=== PATIENT | female | born 1955 | race African-American/Black ===

== ENCOUNTER 2025-10-19 09:05 | Emergency (ER) | payer MEDICARE, OTHER ==
[~2025-10-19] VITALS: Ht 153 cm; Wt 85.9 kg
[~2025-10-19 09:05] MED LIST: AMOX-429 PO; HYDR25TA2 PO; LISI-894 PO
[2025-10-19] MEDS: KETOROLAC TROMETHAMINE 30 MG/ML VIAL IM ONE (12:53)
[2025-10-19] MEDS: LIDOCAINE 5% TRANSDERMAL PATCH TD ONE (12:53)
[2025-10-19 13:39] LABS: PLATELET COUNT (AUTO) 281 K/uL (150-450); RED BLOOD CELL COUNT(AUTO) 5.14 MIL/uL (4.00-5.20); RED CELL DISTRIBUTION WIDTH 15.6 % (11.5-14.5); WHITE BLOOD COUNT (AUTO) 3.8 K/uL (4.5-11.0)
[2025-10-19 13:41] LABS: CALCIUM, TOTAL 9.7 mg/dL (8.8-10.5); CREATININE 0.74 mg/dL (0.60-1.30); GLOMERULAR FILTR. RATE CALC > 60 mL/min (>60); GLUCOSE,RANDOM 82 mg/dL (70-110); SODIUM SERUM 140 mmol/L (136-145); UREA NITROGEN, BLOOD 12 mg/dL (7-18)
[2025-10-19 13:45] LABS: ASPARTATE AMINOTRANSFERASE 17 U/L (15-37); TOTAL PROTEIN, SERUM 8.4 g/dL (6.4-8.2)
[2025-10-19 13:46] LABS: TROPONIN I-HIGH SENSITIVITY 4 ng/L (<51)
[2025-10-19] MEDS ORDERED: IBUP-1492 PO (14:17)
[2025-10-19] MEDS ORDERED: LIDO-57 TP (14:17)
[2025-10-19] MEDS ORDERED: METH-659 PO (14:17)
[2025-10-19 14:32] VITALS: BP 134/85; PULSE 74; RESP 18; TEMP 98.6; O2SAT 99
[2025-10-19] MEDS ORDERED: MECL-302 PO (14:33)
== END 2025-10-19 14:49 | disposition home or self-care (01) ==
LOC: EMS 09:05
DX: S39.012A Strain of muscle, fascia and tendon of lower back, initial encounter (principal); I10 Essential (primary) hypertension; Z90.710 Acquired absence of both cervix and uterus; Z79.899 Other long term (current) drug therapy; W18.2XXA Fall in (into) shower or empty bathtub, initial encounter; Y93.E1 Activity, personal bathing and showering; Y92.89 Other specified places as the place of occurrence of the external cause; Y99.8 Other external cause status
CPT/HCPCS: 99284; 80053; 84484; 85025; 36415; 93005; 96372; J1885